=== PATIENT | female | born 1990 | race Caucasian/White ===

== ENCOUNTER 2021-11-28 16:20 | Observation (INO) | payer MEDICAID, OTHER ==
[~2021-11-28] VITALS: Ht 165.1 cm; Wt 88.0 kg
[2021-11-28] MEDS ORDERED: METO25TA5 PO (17:44)
[2021-11-28] MEDS ORDERED: PROP60CA34 PO (17:44)
[2021-11-28] MEDS ORDERED: PREN27TA7 OR (17:46)
[2021-11-28] MEDS ORDERED: LACTATED RINGER'S 1,000 ML IV ONE (19:00)
== END 2021-11-28 19:41 | disposition left against medical advice (07) ==
LOC: LDRP 16:20
PROVIDERS: ADMIT Obstetrics & Gynecology; ATTEND Obstetrics & Gynecology
DX: O26.892 Other specified pregnancy related conditions, second trimester (principal); R10.9 Unspecified abdominal pain; Z3A.27 27 weeks gestation of pregnancy; Z91.040 Latex allergy status
CPT/HCPCS: 59025; 76815; 81002; 82962; 84112; 94760; G0378; Q0114